=== PATIENT | female | born 1930 | race Caucasian/White ===

== ENCOUNTER 2016-11-10 12:52 | Emergency (ER) | payer MEDICARE, BC ==
--- NOTE | ~2016-11-10 | CR133 ---
[facility]. [facility] A Service of [facility] & [facility] RADIOLOGY TEXT RESULTS PATIENT: COOPER ARGUETA LOCATION: SED : 31 UNIT #: [id number] AGE: [address]: Carol Pro SEX: F ORDER DR: [id number] [place] [id number] E MR#: [id number] Acc #: [id number] NAME: COOPER ARGUETA. : 1930 SEX: F STUDY DATE/TIME: 11/10/2016 12:23 UNIT: SED ROOM: STUDY DESCRIPTION: CR Forearm 2 View Rt Attending Physician: Carol Pro Pa-C Ordering Physician: Carol Pro Pa-C Primary Care Physician: Ty Marks M.D. MEDICAL IMAGING REPORT This report is preliminary unless electronic signature is present. EXAM Right forearm, 2 views, 11/10/2016, 1223 hours. CLINICAL HISTORY Patient complains of diffuse forearm pain and pain with rotation. Toilet seat fell and hit right arm at home 1-1/2 weeks ago. Small bruise on [id number] forearm. COMPARISON None FINDINGS AP and lateral views demonstrate diffuse osteopenia. There is no acute fracture or dislocation. No periosteal reaction. IMPRESSION Diffuse osteopenia with no fracture or dislocation seen. Dictated by... Daylin Rodriguez M.D. THIS IS AN ELECTRONICALLY VERIFIED REPORT Daylin Rodriguez M.D. at 11/10/2016 2:30 PM SUDHA/enzo TD: 11/10/2016 14:10 JOB #: [id number] MEDICAL IMAGING REPORT Page 1 of 1
[~2016-11-10 12:52] MED LIST: CORDARONE200 M1; COUMADIN2.5 MG; DARVOCET-N 1001 TAB PO; DICLOFENAC PO; FLEXERIL10 MG PO; HYDROCHLOROTH12.5 M1; MEDROL PO; MOBIC PO; MULTI-DAY VITAM1 TAB PO; NAPROSYN500 MG PO; TRAMADOL HCL50 M1 PO; VITAMIN D400 UNI2; [UNRECOGNIZED DRUG - REMARK] PO
== END 2016-11-10 13:18 | disposition home or self-care (01) ==
LOC: SED 12:52
DX: S50.11XA Contusion of right forearm, initial encounter (principal); I10 Essential (primary) hypertension; Z79.01 Long term (current) use of anticoagulants; W20.8XXA Other cause of strike by thrown, projected or falling object, initial encounter; Y92.009 Unspecified place in unspecified non-institutional (private) residence as the place of occurrence of the external cause
CPT/HCPCS: 73090; 99283

== ENCOUNTER 2017-01-20 12:00 | Emergency (ER) | payer MEDICARE, BC ==
--- NOTE | ~2017-01-20 | CR211 ---
[facility] A Service of [facility] RADIOLOGY TEXT RESULTS PATIENT: COOPER ARGUETA LOCATION: SED : 31 UNIT #: [id number] AGE: [address]: Chemo Bailey MD SEX: F ORDER DR: [id number] [place] [id number] E MR#: [id number] Acc #: [id number] NAME: COOPER ARGUETA. : 1930 SEX: F STUDY DATE/TIME: 01/20/2017 12:18 UNIT: SED ROOM: STUDY DESCRIPTION: CR Ribs Uni 2 View W PA Ch Rt Attending Physician: Chemo Bailey M.D. Ordering Physician: Chemo Bailey M.D. Primary Care Physician: Ty Marks M.D. MEDICAL IMAGING REPORT This report is preliminary unless electronic signature is present. EXAM Chest and right ribs 01/20 INDICATIONS Rib pain after fall 2 weeks ago. Fell on concrete. TECHNIQUE PA chest x-ray was obtained in addition to a right rib series. COMPARISON STUDIES Comparison made with chest x-ray December 16, 2013. FINDINGS Cardiac and mediastinal contours are within normal limits. Lungs are clear. No pneumothorax. No rib fracture is seen. IMPRESSION No active disease in the chest. No rib fractures are identified. There is no pneumothorax. Dictated by... Montana Caballero Jr., M.D. THIS IS AN ELECTRONICALLY VERIFIED REPORT Montana Caballero Jr., M.D. at 01/23/2017 5:52 AM RLK/pcl TD: 01/20/2017 18:16 JOB #: [id number] [facility] A Service [facility] RADIOLOGY TEXT RESULTS PATIENT: COOPER ARGUETA LOCATION: SED : 31 UNIT #: [id number] AGE: [address]: Chemo Bailey MD SEX: F ORDER DR: MEDICAL IMAGING REPORT Page 1 of 1
== END 2017-01-20 13:24 | disposition home or self-care (01) ==
LOC: SED 12:00
DX: S20.211A Contusion of right front wall of thorax, initial encounter (principal); I48.91 Unspecified atrial fibrillation; W18.09XA Striking against other object with subsequent fall, initial encounter; Y92.89 Other specified places as the place of occurrence of the external cause
CPT/HCPCS: 71101; 99284